=== PATIENT | male | born 1975 | race Caucasian/White ===

== ENCOUNTER 2017-10-16 22:23 | Emergency (ER) | payer BC, SELFPAY ==
[2017-10-16 22:25] VITALS: BP 172/93; PULSE 114; RESP 20; TEMP 38.7; O2SAT 96; BMI 35.9
--- NOTE | 2017-10-16 22:42 | ED.VISSUMM ---
- ER Visit Summary Date of Service: 10/16/17 Chief Complaint: Cough History of Present Illness: The patient is a 42 M started coughing today, developed a fever by this afternoon, feels malaised, headache, no myalgias or dyspnea. Cough is productive of clear mucus. No neck stiffness, minor sore throat. 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 He does not know of any of them had the flu or not but 1 of them had strep. Physical Examination: Febrile 101.6, pulse ox 96 on room air mild tachycardia, hypertensive 172/93. Not tachypneic or in any distress, well-appearing. Lungs are clear to auscultation, neck is supple without lymphadenopathy, posterior oropharynx is normal-appearing. Heart is regular. Abdomen benign. No rashes. Test Results: n/a Emergency Department Course and Treatment: Suspect influenza, it is highly prevalent in the area at this time. Therefore, testing not indicated. Appears uncomplicated at this time. Supportive care advised. Treatment Plan: Tamiflu 75 mg twice daily ?5 days Disposition: Discharge home after TamifluKetan Impression: Influenza This note was generated with [employer] dictation software. It may contain incorrect words, spelling, and punctuation that were not noted in review of the chart prior to signing ED Disposition - Plan for ED Patient: Disposition: Home or Assisted Living Chief Complaint: Cold Sx Instructions: ED Flu Prescriptions: Oseltamivir Phosphate [Tamiflu] 75 mg PO BID #10 cap Referrals: Doctor,Your [STAFF PHYSICIAN] - As Needed
--- NOTE | 2017-10-16 22:47 | ED.DCSUM_ITS ---
- ER Visit Summary Date of Service: 10/16/17 Chief Complaint: Cough History of Present Illness: The patient is a 42 M started coughing today, developed a fever by this afternoon, feels malaised, headache, no myalgias or dyspnea. Cough is productive of clear mucus. No neck stiffness, minor sore throat. 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 He does not know of any of them had the flu or not but 1 of them had strep. Physical Examination: Febrile 101.6, pulse ox 96 on room air mild tachycardia, hypertensive 172/93. Not tachypneic or in any distress, well-appearing. Lungs are clear to auscultation, neck is supple without lymphadenopathy, posterior oropharynx is normal-appearing. Heart is regular. Abdomen benign. No rashes. Test Results: n/a Emergency Department Course and Treatment: Suspect influenza, it is highly prevalent in the area at this time. Therefore, testing not indicated. Appears uncomplicated at this time. Supportive care advised. Treatment Plan: Tamiflu 75 mg twice daily ?5 days Disposition: Discharge home after TamifluKetan Impression: Influenza This note was generated with [employer] dictation software. It may contain incorrect words, spelling, and punctuation that were not noted in review of the chart prior to signing ED Disposition - Plan for ED Patient: Disposition: Home or Assisted Living Chief Complaint: Cold Sx Instructions: ED Flu Prescriptions: Oseltamivir Phosphate [Tamiflu] 75 mg PO BID #10 cap Referrals: Doctor,Your [STAFF PHYSICIAN] - As Needed
[2017-10-16 22:53] VITALS: O2SAT 96
[2017-10-16] MEDS: Ibuprofen 600 MG Tablet PO (22:55)
[2017-10-16] MEDS: Oseltamivir Phosphate 75 MG Capsule PO (22:56)
--- NOTE | 2017-10-16 22:58 | ED.RN ---
ambulatory home by self.
== END 2017-10-16 22:58 | disposition home or self-care (01) ==
LOC: ED 22:51
PROVIDERS: Emergency Provider Emergency Medicine
DX: J11.1 Influenza due to unidentified influenza virus with other respiratory manifestations (principal)
CPT/HCPCS: 99283

== ENCOUNTER 2018-06-01 13:57 | Emergency (ER) | payer BC, SELFPAY ==
[2018-06-01 13:58] VITALS: BP 174/84; PULSE 100; RESP 18; TEMP 36.8; O2SAT 98; BMI 41.7
--- NOTE | 2018-06-01 14:39 | RAD_ITS ---
STUDY: X-RAY CHEST REASON FOR EXAM: Male, 42 years old. Chest pain. Heart palpitations. TECHNIQUE: Single AP upright portable chest view. COMPARISON: None available. FINDINGS: EKG wires project over the chest. The lungs appear clear of active focal pulmonary consolidation, air bronchograms, large pleural effusion, pneumothorax or abnormally dilated bony vascularity and appear well expanded. There is no demonstrated pleural abnormality identified. Soft tissues of the chin partially obscure right greater than left medial apices. Normal appearing size heart for AP upright portable projection. Normal mediastinum and sera. Trachea near midline. Normal visualized pulmonary arteries. Normal visualized aortic arch and descending thoracic aorta. Normal visualized thoracic spine. Normal visualized ribs, clavicles and shoulders. There is no demonstrated abnormality of the visualized soft tissue structures of the upper abdomen. No subdiaphragmatic free air seen grossly. RAD/Chest 1 View (Portable) IMPRESSION: Nonacute appearing x-ray examination of the chest. Mild limitations above. Electronically Signed: Chago Jack, at 15:27 EDT Tel , Service support ,
--- NOTE | 2018-06-01 14:39 | EKG12_ITS ---
Test Reason : PALPITATIONS Blood Pressure : / mmHG Vent. Rate : 098 BPM Atrial Rate : 098 BPM P-R Int : 138 ms QRS Dur : 090 ms QT Int : 352 ms P-R-T Axes : 033 001 035 degrees QTc Int : 449 ms Normal sinus rhythm Normal ECG Confirmed by GURMEET CHRISTIANSEN, PHOENIX ([id number]), editor managing director RANDA RYAN ([id number]) on 06/03/2018 1:14:20 PM Referred By: LAURENCE Confirmed By:PHOENIX LEVI MD
[2018-06-01 14:40] VITALS: O2SAT 98
--- NOTE | 2018-06-01 14:42 | NURSING ---
NO OLD EKGS
[2018-06-01 14:56] LABS: Absolute Neutrophil Count 5.4 X10^3/uL (2.0-7.7); Basophil# 0.01 X10^3/uL; Basophil% 0.1 % (0-1); Eosinophil# 0.09 X10^3/uL; Eosinophils% 1.2 % (0-5); Hematocrit 42.8 % (40-54); Hemoglobin 14.8 g/dl (13.0-16.5); Lymphocyte % 16.6 % (19-41); Mean Corp Hgb Conc 34.6 g/gl (32-36); Mean Corpuscular Hgb 30.8 pg (27.0-32.0); Mean Platelet Vol. 9.2 fl (6.2-12.0); Monocyte# 0.57 X10^3/uL; Monocyte% 7.9 % (0-10); Neutrophil # 5.36 X10^3/uL (2.7-7.7); Neutrophil % 74.1 % (47-70); POSITIVE COUNT NO; POSITIVE DIFFERENTIAL NO; POSITIVE MORPHOLOGY NO; Platelet Count 176 K/mm3 (150-450); RBC Distribution Width CV 13.1 % (11.6-14.6); RBC Distribution Width SD 42.4 fl (35.1-43.9); Red Blood Count 4.81 M/mm3 (4.6-6.2); White Blood Count 7.2 K/mm3 (4.4-11.0)
[2018-06-01 15:09] LABS: Anion Gap 7 (5-15); BUN 13 mg/dL (7-18); BUN/Creat Ratio 12.1 RATIO (10-20); Calcium,Total 8.9 mg/dL (8.5-10.1); Chloride 105 mmol/L (98-107); Creatinine, Serum 1.07 mg/dL (0.70-1.30); EST Glomerular Filtration Rate 80 mL/min (>60); Est Glom Filt Rate - Afr Amer 97 mL/min (>60); Estimated Creatinine Clearance 91.91 ml/min; Glucose 108 mg/dL (74-106); Potassium 3.8 mmol/L (3.5-5.1); Sodium Level 140 mmol/L (136-145)
[2018-06-01 15:28] LABS: D-Dimer Quantitative (DVT/PE) 0.31 FEU/ug/m (0.27-0.49)
[2018-06-01 16:06] VITALS: BP 145/80; PULSE 80; RESP 20; O2SAT 95
--- NOTE | 2018-06-01 16:16 | ED.VISSUMM ---
- ER Visit Summary Date of Service: 06/01/18 Chief Complaint: Palpitations History of Present Illness: The patient is a 42 M with a four-day history of intermittent palpitations. He describes his heart racing and skipping beats. It lasts only a couple minutes at a time and then resolves. He does not feel syncopal. He feels slightly short of breath. Mother did text a family member and states there is a family history of IHSS. Physical Examination: Blood pressure is 174/84, other vitals normal. Patient sitting upright in bed no acute distress. Head neck examination is normal. Heart is regular rate and rhythm. There is no murmur. Lung sounds are clear. Abdomen is soft nontender. Lower extremity examination reveals no calf tenderness or edema. Test Results: EKG is sinus at 98 with no sign of acute ischemia. Portable chest x-ray shows no acute findings. CBC and chemistry studies are normal. Troponin and d-dimer are both unremarkable. Emergency Department Course and Treatment: Patient has been watched on ekg monitor for 2 hours with no evidence of arrhythmia here. I spoken with Dr. King. Patient will be set up for an event monitor-he has an appointment on at 1 PM to have this placed. He will also follow-up in the cardiology office to review these findings as well as schedule an echocardiogram. Patient will be written for verapamil that he can take if he has persistent symptoms, but he is not to start on a regular basis. He understands this. Repeat blood pressure is currently 145/80. Treatment Plan: [] Disposition: Discharge Impression: Palpitations This note was generated with [employer] dictation software. It may contain incorrect words, spelling, and punctuation that were not noted in review of the chart prior to signing ED Disposition - Plan for ED Patient: Chief Complaint: Palpitations Referrals: Care Physician,No Primary [Primary Care Provider] -
--- NOTE | 2018-06-01 16:19 | ED.DCSUM_ITS ---
- ER Visit Summary Date of Service: 06/01/18 Chief Complaint: Palpitations History of Present Illness: The patient is a 42 M with a four-day history of intermittent palpitations. He describes his heart racing and skipping beats. It lasts only a couple minutes at a time and then resolves. He does not feel syncopal. He feels slightly short of breath. Mother did text a family member and states there is a family history of IHSS. Physical Examination: Blood pressure is 174/84, other vitals normal. Patient sitting upright in bed no acute distress. Head neck examination is normal. Heart is regular rate and rhythm. There is no murmur. Lung sounds are clear. Abdomen is soft nontender. Lower extremity examination reveals no calf tenderness or edema. Test Results: EKG is sinus at 98 with no sign of acute ischemia. Portable chest x-ray shows no acute findings. CBC and chemistry studies are normal. Troponin and d-dimer are both unremarkable. Emergency Department Course and Treatment: Patient has been watched on cardiac/vascular sonographer for 2 hours with no evidence of arrhythmia here. I spoken with Dr. King. Patient will be set up for an event monitor-he has an appointment on at 1 PM to have this placed. He will also follow-up in the cardiology office to review these findings as well as schedule an echocardiogram. Patient will be written for verapamil that he can take if he has persistent symptoms, but he is not to start on a regular basis. He understands this. Repeat blood pressure is currently 145/80. Treatment Plan: [] Disposition: Discharge Impression: Palpitations This note was generated with [employer] dictation software. It may contain incorrect words, spelling, and punctuation that were not noted in review of the chart prior to signing ED Disposition - Plan for ED Patient: Chief Complaint: Palpitations Referrals: Care Physician,No Primary [Primary Care Provider] -
--- NOTE | 2018-06-01 16:19 | ED.DEP ---
ED Disposition - Plan for ED Patient: Disposition: Home or Assisted Living Chief Complaint: Palpitations Instructions: ED Palpitations Prescriptions: Verapamil [Calan] 80 mg PO TID PRN #30 tablet PRN Reason: Not Specified Referrals: Dinesh King MD [STAFF PHYSICIAN] - As soon as possible Additional Instructions: You have an appointment on at 1pm to have an event monitor placed.
[2018-06-01 16:29] VITALS: BP 145/80; PULSE 80; RESP 20; O2SAT 95
== END 2018-06-01 16:36 | disposition home or self-care (01) ==
PROVIDERS: Emergency Provider Emergency Medicine
DX: R00.2 Palpitations (principal)
CPT/HCPCS: 71045; 80048; 84484; 85025; 85379; 93005; 99284; A4216

== ENCOUNTER → 2018-06-03 12:32 | Outpatient (REF) | payer BC, SELFPAY | LOC: CVS 12:32 | PROVIDERS: Referring Provider Internal Medicine Cardiovascular Disease; Visit Provider Internal Medicine Cardiovascular Disease | DX: R00.2 Palpitations (principal) | CPT/HCPCS: 93270 ==

== ENCOUNTER → 2018-08-10 10:34 | Outpatient (CLI) | payer BC, SELFPAY ==
[2018-06-22 09:36] VITALS: BMI 41.5
--- NOTE | 2018-08-10 10:38 | ECHOCS_ITS ---
Reason For Study: CONGENITAL HEART DISEASE Procedure This was a 2D Doppler, Color Flow transthoracic echocardiogram. Exam performed in department. Left Ventricle Normal size and thickness. The estimated ejection fraction is 65 %. Normal diastology for age. No regional wall motion abnormalities noted. Right Ventricle Normal size and thickness. Normal systolic function. Atria Normal left atrium. Normal right atrium. Normal atrial septum. Mitral Valve The mitral valve is structurally normal. No prolapse or stenosis seen. Trivial mitral valve insufficiency. Tricuspid Valve Normal tricuspid valve. Trivial tricuspid valve insufficiency. Right ventricular systolic pressure estimated to be 22 mmHg. Aortic Valve Normal aortic valve. Trisinus/trileaflet aortic valve. Pulmonic Valve Normal pulmonic valve. Trivial pulmonic valve insufficiency. Great Vessels Normal aortic root. Normal arch. Normal inferior vena cava. Inferior vena cava collapse with sniff. Pericardium/Pleural No pericardial effusion. Medication 22 gauge I.V. with prn adaptor inserted into right arm. Diluted definity 3ml given slow IV push to enhance endocardial definition. MMode/2D Measurements & Calculations LVIDd: 4.1 cm IVSd: 1.1 cm Ao root diam: 3.5 cm LVIDs: 2.8 cm LVPWd: 1.1 cm RVDd: 3.8 cm FS: 33.1 % LAV(MOD-bp): 51.2 ml EDV(MOD-sp4): 125.3 ml EDV(MOD-sp2): 126.7 ml LAV(MOD-bp) Indexed: 21.0 ml/m2 ESV(MOD-sp4): 52.8 ml EF(MOD-sp2): 56.8 % LAV(MOD-sp2): 47.6 ml EF(MOD-sp4): 57.9 % LAV(MOD-sp4): 51.6 ml SV(MOD-sp4): 72.5 ml SV(MOD-sp2): 72.0 ml LA A4 area: 18.3 cm2 LA dimension(2D): 4.0 cm RA A4 area: 12.4 cm2 Time Measurements MV dec time: 0.19 sec Doppler Measurements & Calculations MV E max darius: 71.0 cm/sec Lat Peak E' Darius: 11.8 cm/sec Med Peak E' Darius: 7.4 cm/sec MV A max darius: 58.3 cm/sec E/E' lat: 6.0 E/E' med: 9.6 MV E/A: 1.2 Ao V2 max: 123.5 cm/sec LV V1 max: 108.1 cm/sec PA V2 max: 115.1 cm/sec Ao max P.1 mmHg LV V1 max P.7 mmHg PI end-d darius: 119.1 cm/sec TR max darius: 206.3 cm/sec TR max P.0 mmHg Interpretation Summary The estimated ejection fraction is 65 %. Normal diastology for age. Trivial mitral valve insufficiency. Trivial tricuspid valve insufficiency. Right ventricular systolic pressure estimated to be 22 mmHg. No evidence of subaortic stenosis or HOLA. There is no comparison study available. The study was technically difficult. Contrast injection was performed. Ordering Physician: Dinesh King Referring Physician: Dinesh King Performed By: Atiya Pitt, JAGDISH, RVT
--- OUTSIDE RECORDS SUMMARY | 2018-11-11 18:40 | XMS RPT_ITS ---
:1975 Author Organization OHIP Support Name Relationship Address Phone CHILANGO HARRIS Unavailable [address] + [place] [address] P S UGO Unavailable [address] + [place] [address] CHILANGO HARRIS Unavailable [address] + [place] [address] P S UGO Unavailable [address] + [place] [id number] CHILANGO HARRIS Unavailable [address] + [place] [address] P S UGO Unavailable [address] + [place] [address] CHILANGO HARRIS Unavailable [address] + [place] [address] P S UGO Unavailable [address] + [place] [address] CHILANGO HARRIS Unavailable [address] + [place] [address] P S UGO Unavailable [address] + [place] [address] CHILANGO HARRIS Unavailable [address] + [place] [address] P S UGO Unavailable [address] + [place] [address] CHILANGO HARRIS Unavailable [address] + [place] [address] P S UGO Unavailable [address] + [place] [address] P S UGO Unavailable [address] + [place] [address] MARYJO WALDEN Unavailable Unavailable + [place] [address] P S UGO Unavailable [address] + [place] [address] MARYJO WALDEN Unavailable Unavailable + [place] [address] Care Team Providers Name Role Phone Dinesh King Attending Unavailable Dinesh King Referring Unavailable Primay Care Physicia, No Primary Care Unavailable Dinesh King Attending Unavailable Dinesh King Referring Unavailable Primay Care Physicia, No Primary Care Unavailable Primay Care Physicia, No Primary Care Unavailable KELSIE PARISI Attending Unavailable Dinesh King Attending Unavailable Dinesh King Referring Unavailable Dinesh King Attending Unavailable Dinesh King Referring Unavailable Dinesh King Attending Unavailable Dinesh King Referring Unavailable Primay Care Physicia, No Primary Care Unavailable Jesica Gomez Attending Unavailable Dinesh King Attending Unavailable Dinesh King Referring Unavailable Primay Care Physicia, No Primary Care Unavailable Dinesh King Attending Unavailable Primay Care Physicia, No Referring Unavailable PROBLEMS PROBLEMS DATE TYPE CONDITION / CODE ATTENDING STATUS SOURCE 06/22/2018 Unknown Z82.49 - Family Fernando Dinesh Active Birgit history of [facility] ischemic heart Hospital disease and other Repository diseases of the circulatory system / Z82.49(ICD-10) 08/09/2018 Unknown R00.2 - Dinesh King Active Birgit Palpitations / [facility] R00.2(ICD-10) Hospital Repository PROCEDURES PROCEDURES No Procedure Records FoundRESULTS RESULTS STRESS TEST ECHO W/ Observed: 08/12/2018 Status: F Source: [place] CONTRAST 4:32 PM [facility] REPOSITORY [facility] Cardiovascular Services [address] [place] [id number] Stress Test Echo W/Contrast MR#: [id number] Acct: [id number] Name: STEVENDORYS E Rep #: [id number] : 1975 42 From: Dinesh King MD Primary Care: Care Physician, No Primary Status: REG CLI Ordering Dr: Dinesh King MD Sex: M C Reason For Study: Arrhythmia Stress Results Protocol: Stress Echocardiogram Maximum Predicted HR: 177 bpm Target HR: 150 bpm % Maximum Predicted HR: 95 % DurationHeart Rate Stage (mm:ss) (bpm) BP Comment BASELINE 80 154/83DILUTED DEFINITY 5 ML USED DURING STRESS SAM PROTOCOL- STAGE 1 3:00 122 150/80 SAM PROTOCOL- STAGE 2 3:00 142 164/80 SAM PROTOCOL- STAGE 3 3:00 169 168/84FATIGUE RECOVERY 108 144/82 Stress Duration: 9:00 mm:ss Maximum Stress HR: 169 bpm Baseline Echocardiogram Findings The estimated ejection fraction is 65 %. Stress Echo Wall motion Data Resting WM Intermediate WM Stress WM Resting Wall Motion Wall Motion Stress No regional wall motion No regional wall motion abnormalities noted. abnormalities noted. EKG Data The baseline ECG displays normal sinus rhythm. The patient exercised according to the regular Sam protocol for a total duration of 9:03. The maximum heart rate attained was 169 beats per minute. This was 95% of maximum predicted heart rate. The patient exercised into stage 4 of the Sam protocol. During stress, there were no ST or T wave changes noted to suggest ischemia. No clinical angina was noted. No arrhythmias noted. Interpretation Summary The estimated ejection fraction is 65 %. Normal, adequate, treadmill echocardiogram. Negative for ischemia by EKG and echocardiographic criteria. No anginal symptoms noted. No arrhythmias noted. Appropriate blood pressure response to exercise. Average exercise capacity for age. Patient tolerated procedure well. No complications. Decreased sensitivity due to poor echo windows requiring Definity enhancement. Final LVEF of 75%. Test terminated due to fatigue. Ordering Physician: Dinesh King MD Referring Physician: Dinesh King Performed By: Alexys Tello RCS 08/12/18 1632 Date Dinesh King MD CC: No Primary Care Physician; Dinesh King MD Date Dictated: 08/12/18 1355 Date Transcribed: 08/12/18 1632 Validation Architect: Signed ECHO, COMPLETE W/ Observed: 08/10/2018 Status: F Source: [place] CONTRAST 2:05 PM [facility] REPOSITORY [facility] Cardiovascular Services [address] [place] [address] Echo Complete W/ Contrast 08/10/18 1040 MR#: [id number] Acct: [id number] Name: DORYS HARRIS Rep #: [id number] : 1975 42 From: Dinesh King MD Attending Dr: Dinesh King MD Status: REG CLI Ordering Dr: Dinesh King MD Date: 08/10/18 Location: CVS Sex: M C Admitted: Reason For Study: CONGENITAL HEART DISEASE Procedure This was a 2D Doppler, Color Flow transthoracic echocardiogram. Exam performed in department. Left Ventricle Normal size and thickness. The estimated ejection fraction is 65 %. Normal diastology for age. No regional wall motion abnormalities noted. Right Ventricle Normal size and thickness. Normal systolic function. Atria Normal left atrium. Normal right atrium. Normal atrial septum. Mitral Valve The mitral valve is structurally normal. No prolapse or stenosis seen. Trivial mitral valve insufficiency. Tricuspid Valve Normal tricuspid valve. Trivial tricuspid valve insufficiency. Right ventricular systolic pressure estimated to be 22 mmHg. Aortic Valve Normal aortic valve. Trisinus/trileaflet aortic valve. Pulmonic Valve Normal pulmonic valve. Trivial pulmonic valve insufficiency. Great Vessels Normal aortic root. Normal arch. Normal inferior vena cava. Inferior vena cava collapse with sniff. Pericardium/Pleural No pericardial effusion. Medication 22 gauge I.V. with prn adaptor inserted into right arm. Diluted definity 3ml given slow IV push to enhance endocardial definition. MMode/2D Measurements AND Calculations LVIDd: 4.1 cm IVSd: 1.1 cm Ao root diam: 3.5 cm LVIDs: 2.8 cm LVPWd: 1.1 cm RVDd: 3.8 cm FS: 33.1 % LAV(MOD-bp): 51.2 ml EDV(MOD-sp4): 125.3 ml EDV(MOD-sp2): 126.7 ml LAV(MOD-bp) Indexed: 21.0 ml/m2 ESV(MOD-sp4): 52.8 ml EF(MOD-sp2): 56.8 % LAV(MOD-sp2): 47.6 ml EF(MOD-sp4): 57.9 % LAV(MOD-sp4): 51.6 ml SV(MOD-sp4): 72.5 ml SV(MOD-sp2): 72.0 ml LA A4 area: 18.3 cm2 LA dimension(2D): 4.0 cm RA A4 area: 12.4 cm2 Time Measurements MV dec time: 0.19 sec Doppler Measurements AND Calculations MV E max darius: 71.0 cm/sec Lat Peak E' Darius: 11.8 cm/sec Med Peak E' Darius: 7.4 cm/sec MV A max darius: 58.3 cm/sec E/E' lat: 6.0 E/E' med: 9.6 MV E/A: 1.2 Ao V2 max: 123.5 cm/sec LV V1 max: 108.1 cm/sec PA V2 max: 115.1 cm/sec Ao max P.1 mmHg LV V1 max P.7 mmHg PI end-d darius: 119.1 cm/sec TR max darius: 206.3 cm/sec TR max P.0 mmHg Interpretation Summary The estimated ejection fraction is 65 %. Normal diastology for age. Trivial mitral valve insufficiency. Trivial tricuspid valve insufficiency. Right ventricular systolic pressure estimated to be 22 mmHg. No evidence of subaortic stenosis or HOLA. There is no comparison study available. The study was technically difficult. Contrast injection was performed. Ordering Physician: Dinesh King Referring Physician: Dinesh King Performed By: Atiya Pitt, JAGDISH, RVT 08/10/18 1404 Date Dinesh King MD CC: No Primary Care Physician; Dinesh King MD Date Dictated: 08/10/18 1040 Date Transcribed: 08/10/18 140 Validation Architect: Signed CARDIOLOGY VISIT Observed: 06/22/2018 Status: F Source: B[place] REPORT 10:00 AM [facility] [address] [place] [address] OFFICE VISIT Date of Service: 06/22/18 MR#: [id number] Acct: [id number] Name: DORYS HARRIS Rep #: [id number] : 1975 Provider: Dinesh King MD Age/Sex: 42/M [place] [facility] Status: Signed HPI HPI Chief Complaint: Palpitations Details: DORYS HARRIS, is a 42 M who presents to the office today for evaluation of palpitations. He has a family history of idiopathic hypertrophic subaortic stenosis, and is currently on verapamil 80 mg p.o. 3 times daily as needed for palpitations. Specifically, the patient developed palpitations and sought medical assistance at [facility] ER on 06/01/18. At that time he was found to be hypertensive with a blood pressure of 174/84 and complains of skipping beats. With his history and his great uncle of [facility], patient was placed on short acting verapamil 80 mg 3 times daily as needed, but the patient has not required any additional medications. In fact, he denies any palpitations. His EKG in the ER on 06/01/18 showed normal sinus rhythm, normal axis, normal intervals, no evidence of LVH, essentially normal EKG. His labs were all normal. On further history patient denies any exertional chest pain, angina, shortness of breath and reports that his palpitations have improved. He is a non- smoker, nondiabetic, and does not have hypercholesterolemia. He denies snoring, or daytime somnolence. He occasionally drinks alcohol, but was not drinking around the time of his palpitations. He denies any dwhl-wpv-lcmieno, herbal, or illegal substances. 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 Event monitor is in place and pending. In our office today's blood pressure is 130/60, pulse is 88 and regular. Physical exam shows clear lungs bilaterally, regular rate and rhythm, normal S1/S2, no dynamic murmurs with Valsalva, no S3 or S4, no edema. EKG is as above. Lipids are pending. Intake Vital Signs06/22/18 Height 5 ft 10 in 06/22/18 Weight: 290 lb 06/22/18 Body Mass Index (BMI) 41.5 06/22/18 Blood Pressure 130/60 H Intake Visit Reasons: PALPS ([facility] ER - NO PCP) Outside Sales Account Manager Required: No Is patient in pain?: No Allergies Penicillins Allergy (Verified 06/22/18 09:40) Unknown Medications Verapamil [Calan] 80 mg PO TID PRN #30 tab 06/01/18 [Rx Confirmed 06/21/18] PFSH Medical History Family history of idiopathic hypertrophic subaortic stenosis (Chronic) Palpitations (Acute) Family History Other Idiopathic hypertrophic subaortic stenosis Social History Smoking Status: Never smoker ROS Const Const: Positive for other (Stopped 30 day: no sx and interferred with work); negative for fatigue, weakness, body ache, fever(s), headache(s), chills, frequent falls, night sweats, daytime sleepiness, difficulty sleeping, excessive sweating, weight gain, weight loss, increased appetite, poor appetite or anorexia Eyes Eyes: Negative for blind spots, loss of peripheral vision, transient loss of vision, blurry vision, change in vision, double vision, floaters, tunnel vision or other ENT ENT: Negative for headache(s), dizziness, hearing loss, tinnitus, Nosebleed/epistaxis, balance problems, post nasal drip, lip swelling, tongue swelling, bleeding gums, hoarseness, neck pain, dry mouth or other Cardio Chest Pain: No Palpitations: No Edema: None Muscle aches with walking: None Resp Respiratory: Negative for SOB with activity, SOB at rest, SOB orthopnea\SOB lying down, Cough, Coughing up blood/hemoptysis, chest congestion, pain on inspiration, snoring, stridor, wheezing, crackles, paroxysmal nocturnal dyspnea or other GI GI: Negative nausea, vomiting, heartburn, constipation, belching, bloating, cramping, vomiting blood/hematemesis, bright, red blood in stools, black,tarry stools, loose stools, Difficulty Swallowing or other : Negative for hematuria, frequent nighttime urination/ nocturia, erectile dysfunction or abnormal vaginal bleeding Musc Musc: Negative for balance problems, muscle aches/ myalgia, muscle weakness or joint pain Skin Skin: Negative redness, non-healing lesions, rash, unusual bruising, skin ulcer, wounds, jaundice or other Neuro Neuro: Negative for weakness, headache(s), frequent falls, blurry vision, double vision, dizziness, lightheadedness, near syncope, syncope, orthostatic symptoms, confusion, memory loss, restless legs, vertigo, seizures, lack of coordination or other Hilario Hematologic/Lymphatic: Negative for easy bleeding, easy bruising, enlarged lymph nodes or other Endo Endo: Negative for fatigue, excessive sweating, cold intolerance, heat intolerance, flushing, increased thirst/drinking, increased hunger, hair loss, hair growth or other Psych Psych: Negative for anxiety, depression, thoughts of harming anyone, thoughts of harming yourself, visual hallucinations, panic attacks or audible hallucinations Allergy Allergy/Immunology: Negative for lip swelling, Negative for tongue swelling, Negative for rash, Negative for throat swelling, Negative for hives Cardiology Exam Const Appearance: cooperative, healthy appearing and no acute distress Nutritional Appearance: well nourished Orientation: alert, oriented x3 and oriented to person Head Head: normal to inspection, atraumatic and normocephalic Nose: external nose normal Face and Sinus: face symmetric Mouth: oral mucosae normal Eyes General: appearance normal, both eyes and all related structures Eyelids: eyelids normal Conjunctivae: conjunctivae normal Pupils: PERRL and normal by confrontation EOM: EOM intact bilaterally Neck Neck: normal visual inspection and full ROM Carotids: normal carotid upstroke Chest Chest inspection: normal inspection of the chest Auscultation: Bilateral: Clear to Auscultation Cardio Palpation: normal PMI Rate: regular rate Rhythm: regular rhythm Heart sounds: S1 normal and S2 normal GI GI: normal to inspection, no hepatosplenomegaly and bowel sounds present Neuro General: alert, oriented x3, awake, CN's II-XI intact bilaterally and moves all extremities Skin Skin: no rashes or lesions noted Extremities Pulses: Normal: Right Femoral Pulse, Left Femoral Pulse, Right Dorsalis Pedis Pulse, Left Dorsalis Pedis Pulse, Right Posterior Tibial Pulse, Left Posterior Tibial Pulse, Right Radial Pulse, Left Radial Pulse Lower Extremity Edema: None: Bilateral Psych Psychological: normal affect Assessment AND Plan 1. Palpitations R00.2 Plan 1. Palpitations: Patient's palpitations have completely resolved. His event monitor is pending. His EKG shows no evidence of LVH, or preexcitation or other interval abnormalities. I recommended the patient undergo a 2D echo with Doppler to document his LV function, valvular status, and pulmonary pressures. In addition will hopefully evaluate whether he has IHSS as well, considering his positive family history of IHSS in the past. We will hold off on long-acting rate control medications until after his echocardiogram and stress test. 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 If this is grossly abnormal, he may require a diagnostic coronary angiogram. I advised the patient to avoid caffeine, alcohol, and nwvv-zrp-tlambmp medications. Orders Orders: 2. Family history of idiopathic hypertrophic subaortic stenosis Z82.49 Plan 2. Family history of IHSS: Patient has a family history of IHSS in his great uncle, but not in his immediate family. Echocardiogram is pending. Should the patient be found to have IHSS I would recommend switching him to daily long-acting verapamil. If the patient has a normal echocardiogram, we may use other rate control medications if indicated. 3. Hyperlipidemia: Recommend obtaining a fasting lipid profile for additional cardiac risk stratification. 4. Return office in 6 months. This note was generated using a voice recognition system and there may be incorrect words, spelling or punctuation that were not noted when reviewing the office note prior to saving. Orders Orders: Plan Detail Follow Up +6M (Fernando) Coding Level of Care Code Off vis,new,level 4 Diagnoses Palpitations R00.2 Family history of idiopathic hypertrophic subaortic stenosis Z82.49 Coding Level of Care Code Off vis,new,level 4 Diagnoses Palpitations R00.2 Family history of idiopathic hypertrophic subaortic stenosis Z82.49 06/22/18 1000 <Electronically signed by Dinesh King MD> Date Dinesh King MD Cosigner Signature: Date (if applicable) CC: No Primary Care Physician 12 LEAD ELECTROCARDIOGRAM Observed: 06/03/2018 Status: F Source: B[place]IT 1:14 PM [facility] Cardiovascular Services [address] [place] [address] 12 Lead EKG 06/01/18 1412 MR#: [id number] Acct: [id number] Name: DORYS HARRIS Rep #: [id number] : 1975 42 From: Darwin Levi MD Attending Dr: Status: DEP ER Ordering Dr: Jesica Gomez MD Date: 06/01/18 Location: ED Sex: M C Admitted: Test Reason : PALPITATIONS Blood Pressure : / mmHG Vent. Rate : 098 BPM Atrial Rate : 098 BPM P-R Int : 138 ms QRS Dur : 090 ms QT Int : 352 ms P-R-T Axes : 033 001 035 degrees QTc Int : 449 ms Normal sinus rhythm Normal ECG Confirmed by GURMEET CHRISTIANSEN, DARWIN ([id number]), assignment editor RANDA RYAN ([id number]) on 06/03/2018 1:14:20 PM Referred By: LAURENCE Confirmed By:DARWIN LEVI MD 06/03/18 1314 Date Darwin Levi MD CC: No Primary Care Physician; Jesica Gomez MD Signed EMERGENCY DEPARTMENT Observed: 06/02/2018 Status: F Source: BIRGIT SUMMARY 2:49 AM [facility] Medical Records Department [address] [place] [address] Emergency Department Summary 06/01/18 1616 MR#: [id number] Acct: [id number] Name: DORYS HARRIS Rep #: [id number] : 1975 42 From: Jesica Gomez MD PCP: Care Physician, No Primary Status: DEP ER - ER Visit Summary Date of Service: 06/01/18 Chief Complaint: Palpitations History of Present Illness: The patient is a 42 M with a four- day history of intermittent palpitations. He describes his heart racing and skipping beats. It lasts only a couple minutes at a time and then resolves. He does not feel syncopal. He feels slightly short of breath. Mother did text a family member and states there is a family history of IHSS. Physical Examination: Blood pressure is 174/84, other vitals normal. Patient sitting upright in bed no acute distress. Head neck examination is normal. Heart is regular rate and rhythm. There is no murmur. Lung sounds are clear. Abdomen is soft nontender. Lower extremity examination reveals no calf tenderness or edema. Test Results: EKG is sinus at 98 with no sign of acute ischemia. Portable chest x-ray shows no acute findings. CBC and chemistry studies are normal. Troponin and d-dimer are both unremarkable. Emergency Department Course and Treatment: Patient has been watched on night monitor for 2 hours with no evidence of arrhythmia here. I spoken with Dr. King. Patient will be set up for an event monitor-he has an appointment on at 1 PM to have this placed. He will also follow-up in the cardiology office to review these findings as well as schedule an echocardiogram. Patient will be written for verapamil that he can take if he has persistent symptoms, but he is not to start on a regular basis. He understands this. Repeat blood pressure is currently 145/80. Treatment Plan: [] Disposition: Discharge Impression: Palpitations This note was generated with MESI dictation software. It may contain incorrect words, spelling, and punctuation that were not noted in review of the chart prior to signing ED Disposition - Plan for ED Patient: Chief Complaint: Palpitations Referrals: Care Physician,No Primary [Primary Care Provider] - What to do if you have Problems For any increased pain, shortness of breath, bleeding, nausea or vomiting, chest pain, or any unexpected problems, contact your Primary Care Provider. Call [facility] ([phone]) or report to the closest Emergency Room. Call 911 if necessary. 06/02/18 0249 <Electronically signed by Jesica Gomez MD> Date Jesica Gomez MD Cosigner Signature (If Indicated): Date CC: No Primary Care Physician DISCHARGE INSTRUCTION Observed: 06/01/2018 Status: F Source: BIRGIT 4:21 PM [facility] REPOSITORY [facility] Medical Records Department [address] [place] [address] Discharge Instruction 06/01/18 1619 MR#: [id number] Acct: [id number] Name: DORYS HARRIS Rep #: [id number] : 1975 42 From: Jesica Gomez MD PCP: Care Physician, No Primary Status: REG ER ED Disposition - Plan for ED Patient: Disposition: Home or Assisted Living Chief Complaint: Palpitations Instructions: ED Palpitations Prescriptions: Verapamil [Calan] 80 mg PO TID PRN #30 tablet PRN Reason: Not Specified Referrals: Dinesh King MD [STAFF PHYSICIAN] - As soon as possible Additional Instructions: You have an appointment on at 1pm to have an event monitor placed. What to do if you have Problems For any increased pain, shortness of breath, bleeding, nausea or vomiting, chest pain, or any unexpected problems, contact your Primary Care Provider. Call [facility] ([phone]) or report to the closest Emergency Room. Call 911 if necessary. 06/01/18 1621 <Electronically signed by Jesica Gomez MD> Date Jesica Gomez MD Cosigner Signature (If Indicated): Date CC: No Primary Care Physician CHEST 1 VIEW Observed: 06/01/2018 Status: F Source: BIRGIT (PORTABLE) 2:40 PM [facility] REPOSITORY [facility] Imaging Services [address] [place] [address] Chest 1 View (Portable) MR#: [id number] Acct: [id number] Name: DORYS HARRIS Rep #: [id number] : 1975 M 42 From: Chago Jack MD PCP: Care Physician, No Primary Status: REG ER Study: Chest 1 View (Portable) Date of Exam: 06/01/18 Exam# [id number] Ordering Dr: Jesica Gomez MD STUDY: X-RAY CHEST REASON FOR EXAM: Male, 42 years old. Chest pain. Heart palpitations. TECHNIQUE: Single AP upright portable chest view. COMPARISON: None available. FINDINGS: EKG wires project over the chest. The lungs appear clear of active focal pulmonary consolidation, air bronchograms, large pleural effusion, pneumothorax or abnormally dilated bony vascularity and appear well expanded. There is no demonstrated pleural abnormality identified. Soft tissues of the chin partially obscure right greater than left medial apices. Normal appearing size heart for AP upright portable projection. Normal mediastinum and sera. Trachea near midline. Normal visualized pulmonary arteries. Normal visualized aortic arch and descending thoracic aorta. Normal visualized thoracic spine. Normal visualized ribs, clavicles and shoulders. There is no demonstrated abnormality of the visualized soft tissue structures of the upper abdomen. No subdiaphragmatic free air seen grossly. RAD/Chest 1 View (Portable) IMPRESSION: Nonacute appearing x-ray examination of the chest. Mild limitations above. Electronically Signed: Chago Jack, at 15:27 EDT Tel , Service support , CC: No Primary Care Physician; Jesica Gomez MD Validation Architect: Signed CBC W/DIFF, AUTOMATED Collected: 06/01/2018 Status: F Source: BIRGIT 2:15 PM [facility] REPOSITORY TYPE CODE TESTS RESULT OUT OF RANGE REFERENCE UNITS LAB L100.1000 4.4-11.0 K/mm3 Normal WBC 7.2 LAB L100.1200 4.6-6.2 M/mm3 Normal RBC 4.81 LAB L100.1300 13.0-16.5 g/dl Normal HGB 14.8 LAB L100.1400 40-54 % Normal HCT 42.8 LAB L100.1500 80-94 fL Normal MCV 89.0 LAB L100.1600 27.0-32.0 pg Normal MCH 30.8 LAB L100.1700 32-36 g/gl Normal MCHC 34.6 LAB L100.1810 11.6-14.6 % Normal RDW CV 13.1 LAB L100.1820 35.1-43.9 fl Normal RDW SD 42.4 LAB L100.1900 150-450 K/mm3 Normal PLT 176 LAB L100.2000 6.2-12.0 fl Normal MPV 9.2 LAB L100.2100 47-70 % High NEUT% 74.1 LAB L100.2200 19-41 % Low LY% 16.6 LAB L100.2300 0-10 % Normal MONO% 7.9 LAB L100.2400 0-5 % Normal EO% 1.2 LAB L100.2500 0-1 % Normal BASO% 0.1 LAB L100.2550 0.0-0.9 % Normal IM GRAN % 0.100 Result Comment: IG% - Immature Granulocytes (promyelocytes, myelocytes and metamyelocytes) > 1% indicates that a LEFT SHIFT is Present. LAB L100.2620 2.0-7.7 X10 3/uL Normal Absolute Neut 5.4 LAB L100.2720 0.83-4.51 X10 3/ul Normal Absolute Lymph 1.20 Performed By: #### L100.0100 #### [facility] [address] [place], [place], [address] BASIC METABOLIC Collected: 06/01/2018 Status: F Source: [facility] PROFILE ([facility]) 2:15 PM [facility] REPOSITORY TYPE CODE TESTS RESULT OUT OF RANGE REFERENCE UNITS LAB L501.0100 74-106 mg/dL High GLU 108 Result Comment: Fasting Glucose result from 100 to 125 mg/dL suggests IMPAIRED HOMEOSTASIS per A.D.A. criteria. Please note revised GLUCOSE reference range effective 2017. LAB L501.1000 7-18 mg/dL Normal BUN 13 LAB L501.1100 0.70-1.30 mg/dL Normal CREAT,SERUM 1.07 Result Comment: The validity of the calculated GFR AND GFRAA in patients over 70 years has not been determined. Clinical correlation is essential. LAB L501.1110 >60 mL/min Normal EST GFR 80 Result Comment: Non- GFR Calc LAB L501.1115 >60 mL/min Normal EST GFR - AA 97 Result Comment: GFR Calc LAB L501.1255 ml/min Normal Estimated CRCL 91.91 LAB L501.1300 10-20 RATIO Normal BUN/CRE 12.1 LAB L501.2200 8.5-10 mg/dL Normal .1 CA 8.9 LAB L501.5300 136-14 mmol/L Normal 5 NA 140 LAB L501.5600 3.5-5. mmol/L Normal 1 K 3.8 LAB L501.5900 98-107 mmol/L Normal CL 105 LAB L501.6100 21.0-3 mmol/L Normal 2.0 CO2 28.0 LAB L501.6200 5-15 Normal GAP 7 Performed By: #### L500.2500, L501.4010 #### [facility] [address] [facility] [place], [place], [address] TROPONIN-I Collected: 06/01/2018 Status: F Source: [facility] 2:15 PM [facility] REPOSITORY TYPE CODE TESTS RESULT OUT OF RANGE REFERENCE UNITS LAB L501.4010 <0.045 ng/mL Normal < 0.015 TROPONIN-I Result Comment: TROPONIN-I EXPECTED VALUES <0.045 Negative 0.045 - 0.590 Consistent with Cardiac Damage > OR = 0.600 Critical Value Not every elevated troponin is indicative of [place]. These values should be used with clinical judgement in examining the patient's clinical picture for diagnosis. To establish a diagnosis of [place] versus myocardial injury, there must be a demonstrated rise and/or fall in the troponin values, in addition to ischemic symptoms, EKG changes, new regional wall motion abnormality, and/or angiographical evidence. PLEASE NOTE: REFERENCE RANGES EDITED 18 Performed By: #### L500.2500, L501.4010 #### [facility] [address] [place], [address] D-DIMER QUANTITATIVE Collected: 06/01/2018 Status: F Source: [facility] (DVT/PE) 2:15 PM [facility] REPOSITORY TYPE CODE TESTS RESULT OUT OF RANGE REFERENCE UNITS LAB L300.8000 0.27-0.49 FEU/ug/m Normal D-DIMER 0.31 QUANT Result Comment: NORMAL D-Dimer level (<0.50) indicates no DVT or PE. Performed By: #### L300.8000 #### [facility] [address] [place], [address] EMERGENCY DEPARTMENT Observed: 10/16/2017 Status: F Source: [facility] SUMMARY 10:47 PM [facility] REPOSITORY [facility] Medical Records Department [address] [place] [address] Emergency Department Summary 10/16/17 2242 MR#: [id number] Acct: [id number] Name: DORYS HARRIS Rep #: [id number] : 1975 42 From: Kelsie Parisi MD PCP: Care Physician, No Primary Status: PRE ER - ER Visit Summary Date of Service: 10/16/17 Chief Complaint: Cough History of Present Illness: The patient is a 42 M started coughing today, developed a fever by this afternoon, feels malaised, headache, no myalgias or dyspnea. Cough is productive of clear mucus. No neck stiffness, minor sore throat. 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 He does not know of any of them had the flu or not but 1 of them had strep. Physical Examination: Febrile 101.6, pulse ox 96 on room air mild tachycardia, hypertensive 172/93. Not tachypneic or in any distress, well-appearing. Lungs are clear to auscultation, neck is supple without lymphadenopathy, posterior oropharynx is normal-appearing. Heart is regular. Abdomen benign. No rashes. Test Results: n/a Emergency Department Course and Treatment: Suspect influenza, it is highly prevalent in the area at this time. Therefore, testing not indicated. Appears uncomplicated at this time. Supportive care advised. Treatment Plan: Tamiflu 75 mg twice daily 5 days Disposition: Discharge home after Tamiflu, Motrin Impression: Influenza This note was generated with MESI dictation software. It may contain incorrect words, spelling, and punctuation that were not noted in review of the chart prior to signing ED Disposition - Plan for ED Patient: Disposition: Home or Assisted Living Chief Complaint: Cold Sx Instructions: ED Flu Prescriptions: Oseltamivir Phosphate [Tamiflu] 75 mg PO BID #10 cap Referrals: Doctor,Your [STAFF PHYSICIAN] - As Needed What to do if you have Problems For any increased pain, shortness of breath, bleeding, nausea or vomiting, chest pain, or any unexpected problems, contact your Primary Care Provider. Call [facility] ([phone]) or report to the closest Emergency Room. Call 911 if necessary. 10/16/172246 <Electronically signed by Kelsie Parisi MD> Date Kelsie Parisi MD Cosigner Signature (If Indicated): Date CC: No Primary Care Physician ALLERGIES ALLERGIES DATE TYPE / CODE NAME / CODE REACTION SEVERITY SOURCE 06/22/2018 Drug Penicillins/ Unknown Unknown [facility] Allergy/4160 [id number]([facility] [address](SNOMED XNORM) Repository CT) ENCOUNTERS ENCOUNTERS ADMIT/DISCHARGE ACCOUNT ADMITTING ENCOUNTER LOCATION SOURCE NUMBER CLASS 08/12/2018 [id number] Ambulatory [place] 7 [facility] ing:[facility] Repository 08/12/2018 [id number] Ambulatory BMSBuilding:W [place] 6 [facility] Repository 08/10/2018 [id number] Amb[place] 6 [facility] ing:[facility] Repository 08/10/2018 [id number] Ambulatory BMSBuilding:W [place] 6 [facility] Repository 06/22/2018/ [id number] [facility] [facility] 06/03/2018 [id number] Ambulatory [place] 6 [facility] ing:[facility] Repository 06/03/2018 [id number] Ambulatory BMSBuilding:W [place] 3 [facility] Repository 06/01/2018/ [id number] Emergency [place] 8 0 [facility] ing:ED Repository 10/16/2017/ [id number] Emergency [place] 8 5 [facility] ing:ED Repository PAYERS PAYERS ENCOUNTER GUARANTOR PAYER SUBSCRIBER SOURCE 08/12/2018 DORYS E Primary DORYS E [place] [id number] Insurance:ANTHEMPolic BRINKERDOB: [facility] MJ y Number: [id number] [id number] Repository [address]Lrx: (330) Date:9393-69-10[phone] () [address], [place] [address]DT: 08/12/2018 Secondary NOT GIVENUNK [place] Insurance:SELF PAY [facility] Number: Effective Repository Date:2018-06-22 08/12/2018 DORYS E Primary DORYS E [place] [id number] Insurance:ANTHEMPolic BRINKERDOB: [facility] y Number: [id number], [place] [id number] Repository [address]Nwc: (330) Date:7036-30-22MS [phone] () [id number], [place] [address]JA: 08/12/2018 Secondary NOT GIVENUNK [place] Insurance:SELF PAY [facility] Number: Effective Repository Date:2018-08-12 08/10/2018 DORYS E Primary DORYS E [place] [id number] Insurance:ANTHEMPolic BRINKERDOB: [facility] y Number: [id number], [place] [id number] Repository [address]Mqh: (330) Date:1566-97-50WO [phone] () [id number], [place] [address]CG: 08/10/2018 Secondary NOT GIVENUNK [place] Insurance:SELF PAY [facility] Number: Effective Repository Date:2018-06-22 08/10/2018 DORYS E Primary DORYS E [place] [id number] Insurance:ANTHEMPolic BRINKERDOB: Community MJ y Number: [id number], [place] [id number] Repository [address]Qos: (330) Date:4719-42-91US BOX [facility]-[address] () [address] [place] [address]ZE: 08/10/2018 Secondary NOT GIVENUNK [place] Insurance:SELF PAY [facility] Number: Effective Repository Date:2018-08-10 06/22/2018 DORYS E Primary DORYS E [place] [id number] Insurance:ANTHEMPolic BRINKERDOB: Community MJ y Number: [id number], [place] [id number] Repository [address]Orm: (330) Date:1014-40-89LT BOX [facility]-8987 () [address] [place] [address]DW: 06/22/2018 Secondary NOT GIVENUNK [place] Insurance:SELF PAY [facility] Number: Effective Repository Date:2018-06-22 06/03/2018 DORYS E Primary DORYS E [place] [id number] Insurance:ANTHEMPolic BRINKERDOB: Community MJ y Number: [id number], [place] [id number] Repository [address]Ryl: (330) Date:9250-77-38VB [phone] () [id number] [place] [address]DI: 06/03/2018 Secondary NOT GIVENUNK [place] Insurance:SELF PAY [facility] Number: Effective Repository Date:2018-06-01 06/03/2018 DORYS E Primary DORYS E [place] [id number] Insurance:ANTHEMPolic BRINKERDOB: Community MJ y Number: [id number], [place] [id number] Repository [address]Gqb: (330) Date:0138-20-43UF [phone] () 898672VGIZVVOEVAN ERNST [address]11[address]BF: 06/03/2018 Secondary NOT GIVENUNK [place] Insurance:SELF PAY [facility] Number: Effective Repository Date:2018-06-03 06/01/2018 DORYS E Primary DORYS E [place] [id number] Insurance:ANTHEMPolic BRINKERDOB: Community [place] y Number: [id number], [place] [id number] Repository [address]Ibq: (330) Date:7204-01-50FF [phone] () [id number] ERNST [address]AZ: 06/01/2018 Secondary NOT GIVENUNK [place] Insurance:SELF PAY [facility] Number: Effective Repository Date:2018-06-01 10/16/2017 DORYS E Primary DORYS E [place] [id number] Insurance:ANTHEMPolic BRINKERDOB: [facility] FINwireWAX y Number: [id number], [place] [id number] Repository [address]Jza: (330) Date:8143-29-82WD [phone] () 160546KKEOXSCEVAN ERNST [address]SY: 10/16/2017 Secondary NOT GIVENUNK [place] Insurance:SELF PAY [facility] Number: Effective Repository Date:2017-10-16
== END ==
PROVIDERS: Referring Provider Internal Medicine Cardiovascular Disease; Visit Provider Internal Medicine Cardiovascular Disease
DX: R00.2 Palpitations (principal); Z82.49 Family history of ischemic heart disease and other diseases of the circulatory system
CPT/HCPCS: 93306; Q9957; A4216; C8929

== ENCOUNTER → 2018-08-12 13:25 | Outpatient (CLI) | payer BC, SELFPAY ==
[2018-06-22 09:36] VITALS: BMI 41.5
--- NOTE | 2018-08-12 13:26 | STEWCON_ITS ---
Reason For Study: Arrhythmia Stress Results Protocol: Stress Echocardiogram Maximum Predicted HR: 177 bpm Target HR: 150 bpm % Maximum Predicted HR: 95 % DurationHeart Rate Stage (mm:ss) (bpm) BP Comment BASELINE 80 154/83DILUTED DEFINITY 5 ML USED DURING STRESS ALLYSON PROTOCOL- STAGE 1 3:00 122 150/80 ALLYSON PROTOCOL- STAGE 2 3:00 142 164/80 ALLYSON PROTOCOL- STAGE 3 3:00 169 168/84FATIGUE RECOVERY 108 144/82 Stress Duration: 9:00 mm:ss Maximum Stress HR: 169 bpm Baseline Echocardiogram Findings The estimated ejection fraction is 65 %. Stress Echo Wall motion Data Resting WM Intermediate WM Stress WM Resting Wall Motion Wall Motion Stress No regional wall motion No regional wall motion abnormalities noted. abnormalities noted. EKG Data The baseline ECG displays normal sinus rhythm. The patient exercised according to the regular Allyson protocol for a total duration of 9:03. The maximum heart rate attained was 169 beats per minute. This was 95% of maximum predicted heart rate. The patient exercised into stage 4 of the Allyson protocol. During stress, there were no ST or T wave changes noted to suggest ischemia. No clinical angina was noted. No arrhythmias noted. Interpretation Summary The estimated ejection fraction is 65 %. Normal, adequate, treadmill echocardiogram. Negative for ischemia by EKG and echocardiographic criteria. No anginal symptoms noted. No arrhythmias noted. Appropriate blood pressure response to exercise. Average exercise capacity for age. Patient tolerated procedure well. No complications. Decreased sensitivity due to poor echo windows requiring Definity enhancement. Final LVEF of 75%. Test terminated due to fatigue. Ordering Physician: Dinesh King MD Referring Physician: Dinesh King Performed By: Alexys Tello RCS
== END ==
PROVIDERS: Referring Provider Internal Medicine Cardiovascular Disease; Visit Provider Internal Medicine Cardiovascular Disease
DX: R00.2 Palpitations (principal); Z82.49 Family history of ischemic heart disease and other diseases of the circulatory system
CPT/HCPCS: 93017; 93350; Q9957; A4216; C8928

== ENCOUNTER → 2019-09-17 08:50 | Outpatient (CLI) | payer BC, SELFPAY ==
[2019-08-22 14:18] VITALS: BMI 41.8
[2019-09-17 10:51] LABS: AST(SGOT) 17 U/L (15-37); Alanine Aminotransfer ALT/SGPT 52 U/L (16-61); Albumin, Serum 4.2 g/dL (3.2-5.0); Alkaline Phosphatase 61 U/L (45-117); Cholesterol 196 mg/dL (200); Globulin 3.6 g/dL (2.2-4.2); High Density Lipoprotein 40 mg/dL; Protein, Total 7.8 g/dL (6.4-8.2); Triglycerides 118 mg/dL; Very Low Density Lipoprotein 24 mg/dL (5-40)
== END ==
PROVIDERS: Referring Provider Internal Medicine Cardiovascular Disease; Visit Provider Internal Medicine Cardiovascular Disease
DX: Z13.220 Encounter for screening for lipoid disorders (principal)
CPT/HCPCS: 36415; 80061; 80076

== ENCOUNTER → 2020-04-20 15:00 | Outpatient (CLI) | payer OTHER, SELFPAY ==
[2020-02-27 14:01] VITALS: BMI 41.8
--- NOTE | 2020-04-20 15:05 | ECHOD_ITS ---
Reason For Study: CHF Procedure This was a 2D Doppler, Color Flow transthoracic echocardiogram. The study was technically difficult. Exam performed in department. Left Ventricle Normal size and thickness. The estimated ejection fraction is 65 %. Stage 1 diastolic dysfunction. No regional wall motion abnormalities noted. Right Ventricle Normal size and thickness. Normal systolic function. Atria Normal left atrium. Normal right atrium. Normal atrial septum. Mitral Valve The mitral valve is structurally normal. No prolapse or stenosis seen. Tricuspid Valve Normal tricuspid valve. Unable to estimate RV systolic pressure due to insufficient tricuspid regurgitant envelope. Aortic Valve Trisinus/trileaflet aortic valve. Pulmonic Valve Normal pulmonic valve. Great Vessels Normal aortic root. Normal arch. Normal inferior vena cava. Inferior vena cava collapse with sniff. Pericardium/Pleural No pericardial effusion. MMode/2D Measurements & Calculations LVIDd: 4.7 cm IVSd: 1.1 cm Ao root diam: 3.6 cm LVIDs: 2.3 cm LVPWd: 1.2 cm LA dimension: 4.0 cm FS: 50.0 % LAV(MOD-bp): 41.2 ml LA A4 area: 15.9 cm2 RA A4 area: 15.1 cm2 LAV(MOD-bp) Indexed: 16.6 ml/m2 LAV(MOD-sp2): 37.8 ml LAV(MOD-sp4): 40.6 ml Time Measurements MV dec time: 0.19 sec Doppler Measurements & Calculations MV E max darius: 66.4 cm/sec Lat Peak E' Darius: 13.9 cm/sec Med Peak E' Darius: 9.7 cm/sec MV A max darius: 82.5 cm/sec E/E' lat: 4.8 E/E' med: 6.8 MV E/A: 0.81 MV V2 max: 69.5 cm/sec MV P1/2t max darius: 63.4 cm/sec Ao V2 max: 97.9 cm/sec MV max P.9 mmHg MV P1/2t: 69.2 msec Ao max P.8 mmHg MV V2 mean: 42.4 cm/sec MV dec slope: 268.6 cm/sec2 Ao V2 mean: 66.7 cm/sec MV mean P.84 mmHg MVA(P1/2t): 3.2 cm2 Ao mean P.0 mmHg MV V2 VTI: 14.9 cm Ao V2 VTI: 17.8 cm LV V1 max: 91.3 cm/sec PA V2 max: 106.9 cm/sec LV V1 max P.3 mmHg LV V1 mean P.6 mmHg LV V1 mean: 57.5 cm/sec LV V1 VTI: 16.6 cm Interpretation Summary The estimated ejection fraction is 65 %. Stage 1 diastolic dysfunction. Unable to estimate RV systolic pressure due to insufficient tricuspid regurgitant envelope. Compared to echo report dated 08/10/2018, no appreciable changes noted. Ordering Physician: Dinesh King Referring Physician: Dinesh King Performed By: Alexys Tello RCS
== END ==
LOC: CVS 15:05
PROVIDERS: Referring Provider Internal Medicine Cardiovascular Disease; Visit Provider Internal Medicine Cardiovascular Disease
DX: I11.0 Hypertensive heart disease with heart failure (principal); I50.9 Heart failure, unspecified; R00.2 Palpitations; Z82.49 Family history of ischemic heart disease and other diseases of the circulatory system
CPT/HCPCS: 93306

== ENCOUNTER 2024-06-02 13:35 | Emergency (ER) | payer OTHER, SELFPAY ==
[2024-06-02 13:36] VITALS: BP 162/83; PULSE 95; RESP 18; TEMP 36.5; O2SAT 96; BMI 41.2
[2024-06-02 15:27] VITALS: BP 148/78; PULSE 95; RESP 18; TEMP 36.5; O2SAT 96
--- NOTE | 2024-06-02 15:27 | EDS_ITS ---
HPI History of Present Illness Chief Complaint: Other, Pain/Inj Detail of Chief Complaint: Pain right inguinal area Informant: patient Onset/Context/Timing Onset: Days (2 days) Context: Sudden Onset Timing: Continuous and Waxes and wanes Quality: Pain Location: Right inguinal area Current Severity: Mild Maximum Severity: Moderate Worsened by: Nothing per patient Relieved by: Nothing Associated Symptoms Associated Symptoms: None Narrative Narrative: Patient is a 48-year-old who presents with right inguinal pain. 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 She denies urologic symptoms. She denies prior symptoms. She has not noted any bulge or mass in the right inguinal area. 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 Prior similar symptoms: No Recent Illness/Hospitalization: No PFSH PFSH Medical History (Updated 06/02/24 @ 15:[address] Niels Ledesma MD) Essential hypertension Family history of idiopathic hypertrophic subaortic stenosis Palpitations Home Medications ?Medication ?Instructions ?Recorded ?Last Taken ?Type verapamil 240 mg tablet,extended 240 mg PO QAM #90 tabs 09/17/20 Unknown Rx release Allergy/AdvReac Type Severity Reaction Status Date / Time Penicillins Allergy Unknown Verified 06/02/24 13:39 Family History Uncle IHSS (idiopathic hypertrophic subaortic stenosis) Father Diabetes Grandmother Diabetes Social History Smoking Status: Never smoker alcohol intake: current alcohol intake frequency: holidays/special occasions only substance use type: does not use caffeine: No ROS ROS ED Gastrointestinal Gastrointestinal: Denies abdominal pain, constipation, diarrhea, nausea or vomiting Genitourinary Genitourinary ED: Reports LMP (females 10-50) Details: Comment: (Not applicable patient is a genotypic male.); Denies dysuria, hematuria or urinary frequency Musculoskeletal Musculoskeletal: Denies arthralgias, back pain or myalgias Integumentary Reports rash Neurologic Neurologic: Denies paresthesias or weakness EXAM Physical Exam Const Vital Signs: 06/02/24 13:36 06/02/24 15:26 Temperature 97.7 F L Temperature Source Temporal Pulse Rate 95 Respiratory Rate 18 Respiratory Effort Normal Non-Labored Respiratory Pattern Normal Blood Pressure 162/83 H Blood Pressure Mean 109 Pulse Ox 96 Positive well nourished and well developed Constitutional Narrative: BMI is 41.2. Vital signs remarkable for slight elevation in blood pressure. General Appearance ED: well developed and NAD; Negative for cyanotic, diaphoretic or pallor HEENT Reports moist mucous membranes HEENT Narrative: Head is atraumatic normocephalic. Eyes PERRL and EOMs intact bilaterally Resp normal respiratory effort Cardio regular rate and regular rhythm GI normal to inspection, nondistended, normoactive bowel sounds, non-tender and non-distended; Negative for hepatosplenomegaly or no masses Narrative: Patient right inguinal area elicits tenderness to palpation. There is no inguinal lymphadenopathy. There is no defect or bulge noted with Valsalva maneuver or cough. There are no lesions noted on the penis. Extremity normal to inspection General Extremety ED: Negative for edema or tenderness General Extremity: Negative for edema Neuro oriented x3 Sensorium / Orientation: alert Psych mental status grossly normal Skin no rashes or lesions noted, no wounds and skin turgor normal General Skin Exam: Negative for jaundice or pallor MDM MDM MDM Narrative Medical decision making narrative: Patient's symptoms are consistent with quadricep muscle strain at the insertion site. Apparently he was seen at an urgent care and was sent here for a second opinion. In my opinion there is no evidence of hernia. Abdominal exam is benign. Treatment is symptomatic. Discharge Plan Triage Chief Complaint: Other, Pain/Inj ED Provider: Niels Ledesma Dx/Rx/DC Orders Clinical Impression: Strain of right quadriceps muscle, fascia and tendon, initial encounter, Essential hypertension Instructions: ED Muscle Strain, Extremity Prescriptions: No Action verapamil 240 mg tablet extended release 240 mg PO QAM Qty: 90 3RF Referrals: Doctor,Your [Non-Staff] - 1 Week if not improving Activity Restrictions/Additional Instructions: 1. Apply ice to right groin 6 times a day 2. Take either 4 ibuprofen tablets every 8 hours or 2 Aleve tablets every 12 hours for the next 5 days. Print Language: Pashto Disposition Disposition: Home, Self Care
== END 2024-06-02 15:54 | disposition home or self-care (01) ==
LOC: ED 15:45
PROVIDERS: Emergency Provider Emergency Medicine; Visit Provider Emergency Medicine
DX: S76.111A Strain of right quadriceps muscle, fascia and tendon, initial encounter (principal); I10 Essential (primary) hypertension; Z79.899 Other long term (current) drug therapy
CPT/HCPCS: 99282